=== PATIENT | male | born 1950 | race Two or more races ===

== ENCOUNTER 2018-12-08 07:52 | Emergency (ER) | payer MEDICARE ==
[~2018-12-08] VITALS: Ht 165.1 cm; Wt 69.0 kg
[2018-12-08] MEDS ORDERED: SODIUM CHLORIDE 0.9% 1000ML BAG (SEPSIS BOLUS) IV ONE (09:30)
[2018-12-08] MEDS ORDERED: ACETAMINOPHEN 500MG TABLET PO ONE (09:30)
[2018-12-08 09:58] LABS: HEMATOCRIT. 41.6 % (42.0-52.0); HEMOGLOBIN. 14.5 g/dL (14.0-18.0); MEAN CORPUSCULAR HEMOGLOBIN 30.8 pg (28.0-32.0); MEAN CORPUSCULAR VOLUME 88.5 fL (80.0-94.0); MEAN PLATELET VOLUME 8.5 fl (7.4-10.4); PLATELET 219 x1000/uL (130-400); RED CELL DISTRIBUTION WIDTH 13.3 % (11.6-14.6)
[2018-12-08 10:06] LABS: CHLORIDE 110 mEq/L (98-107)
[2018-12-08 10:07] LABS: PROTHROMBIN TIME 10.4 sec (9.6-11.0)
[2018-12-08 10:07] LABS: CLARITY URINE CLEAR (CLEAR); COLOR URINE YELLOW (YELLOW); KETONES URINE TRACE (NEGATIVE); LEUKOCYTE ESTERASE URINE 2+ (NEGATIVE); NITRITE URINE NEGATIVE (NEGATIVE); OCCULT BLOOD URINE 2+ (NEGATIVE); PH URINE 5.5 (4.5-8.0); PROTEIN URINE NEGATIVE (NEGATIVE); SPECIFIC GRAVITY URINE 1.012 (1.005-1.030); UROBILINOGEN URINE 0.2 E.U./dL (0.2-1.0)
[2018-12-08 10:21] LABS: PLATELET ESTIMATE NORMAL
[2018-12-08] MEDS ORDERED: CEFTRIAXONE 2 G PREMIX 50 ML IV NR (11:45)
[2018-12-08 12:50] VITALS: BP 106/63
== END 2018-12-08 13:01 | disposition home or self-care (01) ==
LOC: ER 08:15
DX: N12 Tubulo-interstitial nephritis, not specified as acute or chronic (principal); Z87.39 Personal history of other diseases of the musculoskeletal system and connective tissue
CPT/HCPCS: 36415; 71045; 80053; 81003; 83605; 84145; 84484; 85025; 85610; 87040; 87077; 87086; 87186; 93005; 96365; 99284; J0696; J7030

== ENCOUNTER 2019-05-23 03:58 | Emergency (ER) | payer OTHER ==
[~2019-05-23] VITALS: Ht 170.2 cm; Wt 82.0 kg
[2019-05-23] MEDS ORDERED: KETOROLAC 30MG/ML VIAL IV STA (04:25)
[2019-05-23 04:50] LABS: HEMATOCRIT. 46.4 % (42.0-52.0); HEMOGLOBIN. 15.8 g/dL (14.0-18.0); MEAN CORPUSCULAR HEMOGLOBIN 29.8 pg (28.0-32.0); MEAN CORPUSCULAR VOLUME 87.6 fL (80.0-94.0); MEAN PLATELET VOLUME 8.1 fl (7.4-10.4); PLATELET 249 x1000/uL (130-400); RED BLOOD CELL COUNT 5.29 mill/uL (4.7-6.1); RED CELL DISTRIBUTION WIDTH 13.4 % (11.6-14.6)
[2019-05-23 04:54] LABS: CLARITY URINE CLEAR (CLEAR); COLOR URINE YELLOW (YELLOW); KETONES URINE NEGATIVE (NEGATIVE); LEUKOCYTE ESTERASE URINE 2+ (NEGATIVE); NITRITE URINE NEGATIVE (NEGATIVE); OCCULT BLOOD URINE 2+ (NEGATIVE); PH URINE 5.5 (4.5-8.0); PROTEIN URINE 1+ (NEGATIVE); SPECIFIC GRAVITY URINE 1.009 (1.005-1.030); UROBILINOGEN URINE 0.2 E.U./dL (0.2-1.0)
[2019-05-23 04:57] LABS: CHLORIDE 107 mEq/L (98-107)
[2019-05-23 05:51] LABS: PLATELET ESTIMATE NORMAL
[2019-05-23] MEDS ORDERED: SULFAMETHOXAZOLE/TRIMETHOPRIM 800/160MG TABLET PO ONE (06:15)
[2019-05-23 06:59] VITALS: BP 106/62
== END 2019-05-23 07:03 | disposition home or self-care (01) ==
LOC: ER 03:58
DX: K57.90 Diverticulosis of intestine, part unspecified, without perforation or abscess without bleeding (principal); N39.0 Urinary tract infection, site not specified
CPT/HCPCS: 36415; 74176; 80053; 81003; 83690; 85025; 87077; 87086; 87186; 96374; 99284; J1885

== ENCOUNTER 2019-10-02 14:21 | Emergency (ER) | payer OTHER ==
[~2019-10-02] VITALS: Ht 165.1 cm; Wt 88.0 kg
[2019-10-02] MEDS ORDERED: ACETAMINOPHEN 325MG TABLET PO ONE (15:00)
[2019-10-02 17:40] VITALS: BP 133/82
== END 2019-10-02 17:45 | disposition home or self-care (01) ==
LOC: ER 14:21
DX: S00.83XA Contusion of other part of head, initial encounter (principal); W11.XXXA Fall on and from ladder, initial encounter; Y93.89 Activity, other specified; Y92.89 Other specified places as the place of occurrence of the external cause
CPT/HCPCS: 99285

== ENCOUNTER 2023-03-29 01:27 | Emergency (ER) | payer BC, OTHER ==
[~2023-03-29] VITALS: Ht 165.1 cm; Wt 78.9 kg
[2023-03-29 01:38] VITALS: BP 165/97; RESP 18; TEMP 98.3; O2SAT 98
[2023-03-29 01:39] VITALS: PULSE 83
[2023-03-29] MEDS ORDERED: KETOROLAC 60MG/2ML VIAL IM STA (04:37)
[2023-03-29 04:57] LABS: BASOPHILS % 0.4 % (0.0-2.0); EOSINOPHILS % 1.7 % (0.0-5.0); HEMOGLOBIN. 15.1 g/dL (14.0-18.0); LYMPHOCYTES % 22.6 % (20.0-50.0); MEAN CORPUSCULAR HEMOGLOBIN 30.8 pg (28.0-32.0); MEAN CORPUSCULAR HGB CONC 34.4 g/dL (31.0-37.0); MEAN CORPUSCULAR VOLUME 89.7 fL (80.0-94.0); MEAN PLATELET VOLUME 8.1 fl (7.4-10.4); MONOCYTES % 7.4 % (2.0-8.0); NEUTROPHILS % 67.9 % (40.0-76.0); PLATELET 235 x1000/uL (130-400); RED BLOOD CELL COUNT 4.91 mill/uL (4.7-6.1); RED CELL DISTRIBUTION WIDTH 13.6 % (11.6-14.6); WHITE BLOOD COUNT 7.7 x1000/uL (4.5-11.0)
[2023-03-29 05:09] LABS: PROTHROMBIN TIME 10.5 sec (9.6-11.0)
[2023-03-29 05:18] LABS: ALANINE AMINOTRANSFERASE 11 IU/L (10-49); ALBUMIN 4.6 g/dL (3.2-4.8); ASPARTATE AMINOTRANSFERASE 15 IU/L (<34); CALCIUM 9.4 mg/dL (8.7-10.4); CARBON DIOXIDE 28 mEq/L (21-32); CHLORIDE 107 mEq/L (98-107); CREATININE 0.8 mg/dL (0.6-1.3); GLUCOSE 98 mg/dL (70-105); POTASSIUM 4.6 mEq/L (3.5-5.1); PROTEIN TOTAL 7.3 g/dL (6.0-8.3); SODIUM 141 mEq/L (136-145); TROPONIN I HIGH SENSITIVITY 4 ng/L (3.0-53); UREA NITROGEN BLOOD 12 mg/dL (9-23)
[2023-03-29] MEDS ORDERED: TOPUD PO (06:32)
[2023-03-29] MEDS ORDERED: LIDO700A15 TP (06:32)
[2023-03-29 06:35] LABS: CLARITY URINE CLEAR (CLEAR); COLOR URINE YELLOW (YELLOW)
[2023-03-29 06:36] LABS: GLUCOSE URINE NEGATIVE (NEGATIVE); KETONES URINE NEGATIVE (NEGATIVE); LEUKOCYTE ESTERASE URINE NEGATIVE (NEGATIVE); NITRITE URINE NEGATIVE (NEGATIVE); OCCULT BLOOD URINE TRACE (NEGATIVE); PROTEIN URINE NEGATIVE (NEGATIVE); UROBILINOGEN URINE 0.2 E.U./dL (0.2-1.0)
[2023-03-29 11:11] LABS: BACTERIA URINE NONE SEEN; RBC URINE 0-2 /hpf (0-2); SQUAMOUS EPITHELIAL CELL URINE RARE /lpf (RARE/1+); WBC URINE NONE SEEN /hpf (0-2); YEAST URINE NONE SEEN
== END 2023-03-29 07:06 | disposition home or self-care (01) ==
LOC: ER 01:27
DX: R10.12 Left upper quadrant pain (principal)
CPT/HCPCS: 99285; 74176; 71045; 80053; 81003; 83690; 85025; 85610; 84484; 36415; 93005; J1885